=== PATIENT | female | born 1975 | race Caucasian/White ===

== ENCOUNTER 2020-03-14 14:59 | Outpatient (CLI) | payer MEDICARE, MEDICAID, SELFPAY ==
--- NOTE | 2020-03-14 15:13 | XR_ITS ---
WS: [id number] LEFT ANKLE: 3 VIEW(S) TECHNIQUE: AP, oblique(s) and lateral. HISTORY: LEFT ANKLE PAIN COMPARISON: None available. Normal anatomic alignment with no fracture or dislocation. No joint effusion or widening of the ankle mortise. No significant degenerative changes at the joint spaces. No soft tissue abnormality. XR/XR ankle LT min 3V* [id number] IMPRESSION: Normal LEFT ankle.
== END 2020-03-14 15:00 | disposition home or self-care (01) ==
LOC: WPI 15:07
PROVIDERS: Family Provider Nurse Practitioner Family; Visit Provider Nurse Practitioner Family
DX: M25.572 Pain in left ankle and joints of left foot (principal)
CPT/HCPCS: 73610

== ENCOUNTER 2020-04-28 08:27 | Outpatient (CLI) | payer MEDICARE, MEDICAID, SELFPAY ==
--- NOTE | 2020-04-28 08:40 | MM_ITS ---
WS: [id number] BILATERAL DIGITAL SCREENING MAMMOGRAPHY WITH CAD CLINICAL INFORMATION: SCREENING HISTORY: Screening mammogram. No current complaints. COMPARISON: None. TECHNIQUE: Bilateral CC and MLO views. FINDINGS: The breasts are composed of heterogeneous fibroglandular density tissue, which can limit the detectio n of small underlying mass lesions. Asymmetric ovoid density along the posterior nipple line left rashad ast measuring 8 mm. RECOMMEND FURTHER EVALUATION WITH LEFT BREAST DIAGNOSTIC MAMMOGRAM SPOT COMPRESSI ON VIEWS AND ULTRASOUND. Right breast is unremarkable. MM/[place] [id number] IMPRESSION: BI-RADS: 0-Incomplete: Need additional imaging evaluation FOLLOW UP: Need Additional Imaging
== END 2020-04-28 08:28 | disposition home or self-care (01) ==
LOC: RADSHAW 08:32
PROVIDERS: PCP Nurse Practitioner Family; Visit Provider Nurse Practitioner Family
DX: Z12.31 Encounter for screening mammogram for malignant neoplasm of breast (principal); N64.89 Other specified disorders of breast
CPT/HCPCS: 77067

== ENCOUNTER 2020-05-12 12:07 | Outpatient (CLI) | payer MEDICARE, MEDICAID, SELFPAY ==
--- NOTE | 2020-05-12 12:14 | US_ITS ---
WS: [id number] LEFT DIGITAL MAMMOGRAPHY WITH CAD CLINICAL INFORMATION: ABNORMAL MAMMOGRAM COMPARISON: April 28, 2020 TECHNIQUE: 3 views of the left breast were obtained. FINDINGS: The left breast is composed of heterogeneous fibroglandular density tissue, which can limit the detec tion of small underlying mass lesions. Again seen is the asymmetric ovoid density posterior nipple line left breast measuring 8 mm. This per sists on spot compression views. Ultrasound is pending. ULTRASOUND BREAST LEFT TECHNIQUE: Ultrasound left breast focused area of concern. CLINICAL INFORMATION: ABNORMAL MAMMOGRAM COMPARISON: None. FINDINGS: Ultrasound left breast at the 2:00 position. Slightly lobulated hypoechoic lesion at the 10:00 positi on appears solid with no significant blood flow. This is nonspecific and Recommend further evaluation with ultrasound-guided biopsy. Adjacent incidental dilated ducts visualized left breast. US/US breast LT limited* [id number] IMPRESSION: BI-RADS: 4-Suspicious Finding-Biopsy Should Be Considered FOLLOW UP: US Guided Biopsy Recommended
== END 2020-05-12 12:08 | disposition home or self-care (01) ==
LOC: RADSHAW 12:10
PROVIDERS: PCP Family Medicine; Visit Provider Nurse Practitioner Family
DX: R92.8 Other abnormal and inconclusive findings on diagnostic imaging of breast (principal); N64.89 Other specified disorders of breast
CPT/HCPCS: 76642; 77065

== ENCOUNTER 2020-05-20 10:47 | Outpatient (CLI) | payer MEDICARE, MEDICAID, SELFPAY ==
--- NOTE | 2020-05-20 10:56 | US_ITS ---
WS: [id number] ULTRASOUND BREAST LEFT TECHNIQUE: Ultrasound left breast focused area of concern. CLINICAL INFORMATION: ABNORMAL LEFT BREAST MAMMOGRAM COMPARISON: May 12, 2020 FINDINGS: Previously described left breast lesion is no longer seen today. Normal underlying dense parenchymal tissue. Findings are probably benign and recommend 6 month follow-up left diagnostic mammography and ultrasound to confirm stability. US/US breast LT limited* [id number] IMPRESSION: 1. Breast biopsy was not performed as previously described lesion not seen totalon fontaine. 2. Recommend 6 month follow-up left diagnostic mammography and ultrasound
== END 2020-05-20 10:48 | disposition home or self-care (01) ==
LOC: RAD 10:52
PROVIDERS: PCP Family Medicine; Visit Provider Nurse Practitioner Family
DX: R92.8 Other abnormal and inconclusive findings on diagnostic imaging of breast (principal)
CPT/HCPCS: 76642

== ENCOUNTER 2021-02-13 15:42 | Outpatient (CLI) | payer MEDICARE, MEDICAID, SELFPAY ==
--- NOTE | 2021-02-13 16:00 | MRR_ITS ---
PROCEDURE INFORMATION: Exam: MR Left Lower Extremity Joint Without Contrast, Knee Exam date and time: 02/13/2021 4:00 PM Age: 45 years old Clinical indication: Pain; Left; Patient HX: History--l knee lock up, started in jun, and is getting worse. No know injury; Additional info: Locking knee, left TECHNIQUE: Imaging protocol: MR of the Left lower extremity joint without contrast. Exam focused on the knee. COMPARISON: CR XR knee LT 3V* [id number] 01/14/2021 12:38 PM FINDINGS: Bones and cartilage: Unremarkable. No bone abnormalities. Articular cartilage normal. Joint spaces: No joint effusion. Medial meniscus: Unremarkable. No tear. Lateral meniscus: Unremarkable. No tear. Anterior cruciate ligament: Unremarkable. No tear. Posterior cruciate ligament: Unremarkable. No tear. Medial capsule and supporting structures: Unremarkable. No tear. Lateral capsule and supporting structures: Unremarkable. No tear. Extensor mechanism of knee: Unremarkable. No tear. Muscles: Unremarkable. Soft tissues: Unremarkable. MR/MR knee LT wo con* [id number] IMPRESSION: Normal MR Knee.
== END 2021-02-13 15:43 | disposition home or self-care (01) ==
LOC: RADSHAW 15:48
PROVIDERS: PCP Family Medicine; Visit Provider Family Medicine
DX: M23.92 Unspecified internal derangement of left knee (principal)
CPT/HCPCS: 73721

== ENCOUNTER 2021-05-24 10:02 | Emergency (ER) | payer MEDICARE, MEDICAID, SELFPAY ==
--- NOTE | 2021-05-24 10:27 | XRR_ITS ---
PROCEDURE INFORMATION: Exam: XR Right Ankle Exam date and time: 05/24/2021 10:27 AM Age: 45 years old Clinical indication: Injury or trauma; Fall; Blunt trauma; Ankle; Right; Additional info: Injury/pain TECHNIQUE: Imaging protocol: XR Right ankle. Views: 3 or more views. COMPARISON: No relevant prior studies available. FINDINGS: Bones/joints: Normal. Soft tissues: Normal. XR/XR ankle RT min 3V* [id number] IMPRESSION: No acute findings. Radiation Dose CTDIVOL = (mGy): DLP = (mGy-cm)
[2021-05-24 11:11] VITALS: BP 130/82; PULSE 75; RESP 18; O2SAT 96; BMI 27.4
--- NOTE | 2021-05-24 11:17 | XRR_ITS ---
PROCEDURE INFORMATION: Exam: XR Right Foot Exam date and time: 05/24/2021 11:17 AM Age: 45 years old Clinical indication: Injury or trauma; Fall; Blunt trauma; Foot; Right; Additional info: Injury/pain TECHNIQUE: Imaging protocol: XR Right foot. Views: 3 or more views. COMPARISON: No relevant prior studies available. FINDINGS: Bones/joints: Normal. Soft tissues: Normal. XR/XR foot RT min 3V* [id number] IMPRESSION: No acute findings. Radiation Dose CTDIVOL = (mGy): DLP = (mGy-cm)
--- NOTE | 2021-05-24 11:17 | W.ED.LOWEXIN ---
HPI - Extremity Injury (Lower) General: Chief Complaint: Extremity Injury, Lower Stated Complaint: R ANKLE INJURY Time Seen by Provider: 05/24/21 11:14 Source: patient Mode of arrival: wheelchair Limitations: no limitations History of Present Illness: HPI Narrative: Patient is a 45-year-old female presents to ED today for evaluation of a right foot/ankle injury that she sustained a few hours ago after stepping down a stair wrong and twisting it. She has no other injuries or complaints at this time. complaint: ankle injury and foot injury Onset (ago): hour(s) Relieving factors: immobilization Exacerbating factors: weight bearing, movement and palpation Context: fall (twisting) Other symptoms: none Review of Systems Musc: Reports: extremity pain, joint pain (R ankle) and joint swelling Skin/Breast: Denies: new lesions or changes in skin color Neuro: Denies: numbness in extremities or sensory changes Physical Exam Const: COMMON NORMALS: no acute distress, patient oriented x3, no limitations and alert GENERAL APPEARANCE: cooperative Extremity: GENERAL: Yes normal exam except as noted RIGHT LOWER EXTREMITY: Yes foot & digits Right ankle: Yes inspection (no obvious swelling appreciated), Yes palpation (TTP medial/lateral ankle) and Yes neurovascular exam (normal) and Yes foot & digits (TTP lateral dorsal foot; no swelling) Right foot and digits: Yes neurovascular exam (normal) Neuro: COMMON NORMALS: patient oriented x3, moves all extremities, no focal motor deficits and no sensory deficits noted SENSORIUM/ORIENTATION: Yes alert Skin: COMMON NORMALS: no rashes or lesions noted GENERAL SKIN EXAM: no rashes or lesions noted TRAUMA: no lacerations or abrasions Course Vital Signs: Vital signs: Vital Signs Pulse Rate 75 05/24/21 11:11 Respiratory Rate 18 05/24/21 11:11 Blood Pressure 130/82 05/24/21 11:11 Pulse Oximetry 96 05/24/21 11:11 MDM - Extremity Injury (Lower) Imaging Data^: XR R ankle: Radiologist's impression: [address] [address] XRay Report Signed Patient: Jes King Unit #: [id number] : 1975 Age/Sex: 45 / F ADM Date: 05/24/21 Loc: ER Room/Bed: Attending Dr: Ordering Provider/Ordering MD: Daksha Gonzalez Date of Service: 05/24/21 Procedure(s): XR ankle RT min 3V* [id number] Accession Number(s): [id number] Report Number: [id number] PROCEDURE INFORMATION: Exam: XR Right Ankle Exam date and time: 05/24/2021 10:27 AM Age: 45 years old Clinical indication: Injury or trauma; Fall; Blunt trauma; Ankle; Right; Additional info: Injury/pain TECHNIQUE: Imaging protocol: XR Right ankle. Views: 3 or more views. COMPARISON: No relevant prior studies available. FINDINGS: Bones/joints: Normal. Soft tissues: Normal. XR/XR ankle RT min 3V* [id number] IMPRESSION: No acute findings. Radiation Dose CTDIVOL = (mGy): DLP = (mGy-cm) Dictated By: Joseluis Bolden Signed By: Joseluis Bolden Signed Date/Time: 05/24/21 1244 DD/ 1027 XR R foot: Radiologist's impression: [address] [address] XRay Report Signed Patient: Anais Ramirez Unit #: [id number] : 09/21/1974 Age/Sex: 46 / F ADM Date: 05/24/21 Loc: ER Room/Bed: Attending Dr: Ordering Provider/Ordering MD: Daksha Gonzalez Date of Service: 05/24/21 Procedure(s): XR ankle LT min 3V* [id number] Accession Number(s): [id number] Report Number: [id number] PROCEDURE INFORMATION: Exam: XR Left Ankle Exam date and time: 05/24/2021 9:32 AM Age: 46 years old Clinical indication: Injury or trauma; Fall; Blunt trauma; Ankle; Left; Additional info: Pain/possible injury TECHNIQUE: Imaging protocol: XR Left ankle. Views: 3 or more views. COMPARISON: No relevant prior studies available. FINDINGS: Bones/joints: Bones intact and normally aligned. Soft tissues: Normal. XR/XR ankle LT min 3V* [id number] IMPRESSION: No acute radiographic findings. Radiation Dose CTDIVOL = (mGy): DLP = (mGy-cm) Dictated By: Hernando Piedra MD Signed By: Hernando Piedra MD Signed Date/Time: 05/24/21 1035 DD/ 0932 Discharge Plan Discharge Patient Disposition: Home Clinical Impression: Right ankle sprain Qualifiers: Encounter type: initial encounter Involved ligament of ankle: unspecified ligament Qualified Code(s): S93.401A - Sprain of unspecified ligament of right ankle, initial encounter Condition: Stable Discharge Orders: Discharge ED (Routine); Ordered 05/24/21 Ordered By: Daksha Gonzalez Referrals: Cuco Gil MD [Primary Care Provider] - Patient Instructions: Ankle Sprain (ED) Coding Level of Care Code ED [employer] Fwd Exam Expanded Problem Focused
== END 2021-05-24 11:59 | disposition home or self-care (01) ==
PROVIDERS: Emergency Provider Physician Assistant; PCP Family Medicine
DX: S93.401A Sprain of unspecified ligament of right ankle, initial encounter (principal); X50.1XXA Overexertion from prolonged static or awkward postures, initial encounter
CPT/HCPCS: 73610; 73630; 99282; E0114

== ENCOUNTER → 2022-08-02 10:53 | Outpatient (BNVA) | payer MEDICARE, MEDICAID, SELFPAY | PROVIDERS: PCP Family Medicine; Referring Provider Nurse Practitioner Family; Visit Provider Specialist | DX: M79.642 Pain in left hand (principal); X50.0XXA Overexertion from strenuous movement or load, initial encounter; M65.4 Radial styloid tenosynovitis [de Quervain]; S93.401A Sprain of unspecified ligament of right ankle, initial encounter | CPT/HCPCS: 73130; 99203 ==

== ENCOUNTER 2024-02-09 12:45 | Outpatient (CLI) | payer MEDICARE, MEDICAID, SELFPAY ==
--- NOTE | 2024-02-09 12:48 | MM_ITS ---
WS: [id number] BILATERAL SCREENING DIGITAL TOMOSYNTHESIS MAMMOGRAM WITH CAD HISTORY: SCREENING COMPARISON: 05/12/2020, 04/28/2020 Bilateral CC and MLO views with tomosynthesis and synthetic mammography submitted. Computer aided det ection analyzed. Breast composition: The breasts are heterogeneously dense, which may obscure small masses. No suspici ous masses, microcalcifications or architectural distortion. MM/[place] [id number] IMPRESSION: BI-RADS: 1-Negative FOLLOW UP: 1 Year Follow-up
== END 2024-02-09 12:46 | disposition home or self-care (01) ==
LOC: RAD 12:46
PROVIDERS: PCP Family Medicine; Visit Provider Family Medicine
DX: Z12.31 Encounter for screening mammogram for malignant neoplasm of breast (principal); R92.333 Mammographic heterogeneous density, bilateral breasts
CPT/HCPCS: 77063; 77067

== ENCOUNTER → 2024-05-23 08:44 | Outpatient (BNVA) | payer MEDICARE, MEDICAID, SELFPAY | PROVIDERS: PCP Family Medicine; Visit Provider Podiatrist Foot & Ankle Surgery | DX: G57.61 Lesion of plantar nerve, right lower limb | CPT/HCPCS: 99203 ==

== ENCOUNTER → 2024-07-09 15:18 | Outpatient (BNVA) | payer MEDICARE, MEDICAID, SELFPAY | PROVIDERS: PCP Family Medicine; Visit Provider Podiatrist Foot & Ankle Surgery | DX: G57.61 Lesion of plantar nerve, right lower limb (principal); M79.671 Pain in right foot | CPT/HCPCS: 64455; J1100; J3301; J3490 ==

== ENCOUNTER → 2024-08-27 11:00 | Outpatient (BNVA) | payer MEDICARE, MEDICAID, SELFPAY | PROVIDERS: PCP Family Medicine; Visit Provider Podiatrist Foot & Ankle Surgery | DX: M79.671 Pain in right foot (principal); G57.61 Lesion of plantar nerve, right lower limb | CPT/HCPCS: 99213 ==

== ENCOUNTER 2025-06-07 16:52 | Outpatient (CLI) | payer MEDICARE, MEDICAID, SELFPAY ==
--- NOTE | 2025-06-07 16:58 | USR_ITS ---
PROCEDURE INFORMATION: Exam: US Duplex Right Lower Extremity Veins, Limited Exam date and time: 06/07/2025 5:02 PM Age: 49 years old Clinical indication: Pain; Leg, upper and leg, lower; Right; Prior surgery; Surgery date: 6+ months; Surgery type: Hip surgery done in 2005; Additional info: Right leg pain TECHNIQUE: Imaging protocol: Real-time duplex ultrasound of the right extremity with 2-D shipman scale, color Doppler flow and spectral waveform analysis including responses to compression and other maneuvers (when performed) with image documentation. Limited exam was focused on the right lower extremity veins. COMPARISON: CR XR foot RT min 3V* [id number] 04/28/2024 11:26 AM FINDINGS: Right deep veins: Unremarkable. The common femoral, femoral, proximal profunda femoral and popliteal veins are patent without thrombus. Normal Doppler waveforms. Normal compressibility and/or augmentation response. Superficial veins: Greater saphenous vein at the saphenofemoral junction is patent without thrombus. Soft tissues: Unremarkable. US/[place] [id number] IMPRESSION: No evidence of deep vein thrombosis.
== END 2025-06-07 16:53 | disposition home or self-care (01) ==
LOC: RAD 16:52
PROVIDERS: PCP Family Medicine
DX: M79.661 Pain in right lower leg (principal)
CPT/HCPCS: 93971